=== PATIENT | female | born 1935 | race American Indian/Alaskan Native ===

== ENCOUNTER 2017-05-31 10:16 | Day surgery (SDC) | payer MEDICARE ==
[~2017-05-31 10:16] MED LIST: ACET325 PO; ALBU90OI61 INH; ALEN70 PO; AZIT500 PO; CEFD300 PO; CETI5 PO; FURO20 PO; Jantoven5 MG PO; LEVSOD125 PO; LISI20 PO; LOVA40 PO; METO25 PO; MONT10T PO; MONT4 PO; NITR.4SL SL; PANT40 PO; PRED10 PO; PRED20 PO; Potassium Chlo10 ME1 PO; SPIR25 PO; Ultram50 MG PO; ZESTORETIC 20-121 EA PO
== END 2017-05-31 22:49 | disposition home or self-care (01) ==
LOC: MOI MAM 10:16
PROC: 0HBT3ZX Excision of Right Breast, Percutaneous Approach, Diagnostic (ICD-10-PCS; principal; 2017-05-31)
DX: R92.8 Other abnormal and inconclusive findings on diagnostic imaging of breast (principal)
CPT/HCPCS: 19081; 88305

== ENCOUNTER → 2017-09-06 | Outpatient (CLI) | payer MEDICARE ==
[2017-09-07 14:42] LABS: Stool Occult Bld Immuno 1 Negative (NEGATIVE)
== END | disposition home or self-care (01) ==
LOC: LAB EV 08:30
PROVIDERS: Internal Medicine
DX: Z12.11 Encounter for screening for malignant neoplasm of colon (principal)
CPT/HCPCS: G0328

== ENCOUNTER → 2018-06-13 | Outpatient (CLI) | payer MEDICARE ==
[2018-06-13 15:15] LABS: BASOPHILS ABSOLUTE AUTO 0.02 K/mm3 (0.00-0.23); BASOPHILS PERCENT AUTO 0 % (0-2); EOSINOPHILS ABSOLUTE AUTO 0.09 K/mm3 (0.00-0.68); EOSINOPHILS PERCENT AUTO 1 % (0-6); Hematocrit 32.9 % (33.0-51.0); Hemoglobin 10.3 g/dL (11.5-16.0); IMMATURE GRAN ABSOLUTE AUTO 0.03 K/mm3 (0.00-0.10); IMMATURE GRAN PERCENT AUTO 0 % (0-1); LYMPHOCYTES ABSOLUTE AUTO 1.37 K/mm3 (0.84-5.20); LYMPHOCYTES PERCENT AUTO 14 % (21-46); MONOCYTES ABSOLUTE AUTO 0.85 K/mm3 (0.16-1.47); MONOCYTES PERCENT AUTO 9 % (4-13); Mean Corpuscular HGB 26.3 pg (26.0-34.0); Mean Corpuscular HGB Conc 31.3 g/dL (31.5-36.5); Mean Corpuscular Volume 84 fL (80-100); Mean Platelet Volume 10.5 fL (9.1-12.4); NEUTROPHILS ABSOLUTE AUTO 7.19 K/mm3 (1.96-9.15); NEUTROPHILS PERCENT AUTO 75 % (41-73); Platelet Count 298 K/mm3 (150-400); RDW Coefficient Variation 16.3 % (11.7-14.2); RDW Standard Deviation 49.8 fL (35.1-46.3); Red Blood Cell Count 3.91 M/mm3 (3.80-5.20); White Blood Cell Count 9.55 K/mm3 (4.00-11.30)
[2018-06-13 15:33] LABS: Calcium, Blood 8.9 mg/dL (8.5-10.1); Creatinine, Blood 1.27 mg/dL (0.40-1.00); Potassium, Blood 3.6 mmol/L (3.5-5.5)
== END ==
LOC: LAB EV 15:11 → LAB SHORT 15:11
PROVIDERS: Family Medicine
DX: R42 Dizziness and giddiness (principal)
CPT/HCPCS: 80048; 85025

== ENCOUNTER → 2023-04-06 | Outpatient (CLI) | payer MEDICARE ==
[2023-04-07 12:03] LABS: Stool Occult Bld Immuno 1 Negative (NEGATIVE)
== END | disposition home or self-care (01) ==
LOC: LAB 10:40 → LAB SHORT 10:40
PROVIDERS: Internal Medicine
DX: D53.9 Nutritional anemia, unspecified (principal)
CPT/HCPCS: 82274

== ENCOUNTER 2023-06-05 06:49 | Day surgery (SDC) | payer MEDICARE ==
[~2023-06-05] VITALS: Ht 160 cm; Wt 99.8 kg
[2023-06-05] VITALS (8 sets, daily range): BP systolic 103–150; BP diastolic 54–76
[2023-06-05] MEDS ORDERED: ATOR10 PO (06:57)
[2023-06-05] MEDS ORDERED: Ascorbic Acid500 M2 PO (06:57)
[2023-06-05] MEDS ORDERED: VITAMIN D325 MC3 PO (07:01)
[2023-06-05] MEDS ORDERED: B-12500 MC2 PO (07:02)
[2023-06-05] MEDS ORDERED: FERROUS SULFAT325 M3 PO (07:03)
[2023-06-05] MEDS ORDERED: XARELTO15 MG PO (07:05)
[2023-06-05] MEDS ORDERED: POTCHL20ER PO (07:05)
--- NOTE | 2023-06-05 09:20 | NUR ---
PT BACK TO RECOVERY ROOM. ALERT AND ORIENTED. PT DAUGHTER BACK TO VISIT. PT AND FAIMILY UPDATED ON PROCEDURE. PT GIVEN BREAKFAST AND COFFEE. ICE PACK PLACED OVER PACEMAKER SITE. DRESSING INTACT. NO HEMATOMA NOTED.
--- NOTE | 2023-06-05 11:30 | NUR ---
DR REYES NOTIFIED OF SMALL AMOUNT OF BLOOD ON DRESSING. OKAY TO D/C HOME WITHOUT CHANGING DRESSING. PT AND DAUGHTER VERBALIZE D/C INSTRUCTIONS AND TO FOLLOW UP FOR WOUND CHECK NEXT WEEK 06/16/23. IV D/C CATHETER INTACT. PT DRESSED WITHOUT DIFFICULTY AND WHEELED OUT TO DAUGHTERS VEHICLE.
== END 2023-06-05 11:40 | disposition home or self-care (01) ==
LOC: MHTC 06:49
DX: Z45.010 Encounter for checking and testing of cardiac pacemaker pulse generator [battery] (principal); I48.21 Permanent atrial fibrillation; I49.5 Sick sinus syndrome; E21.3 Hyperparathyroidism, unspecified; E03.9 Hypothyroidism, unspecified; J44.9 Chronic obstructive pulmonary disease, unspecified; I13.0 Hypertensive heart and chronic kidney disease with heart failure and stage 1 through stage 4 chronic kidney disease, or unspecified chronic kidney disease; I50.30 Unspecified diastolic (congestive) heart failure; N18.9 Chronic kidney disease, unspecified; E11.22 Type 2 diabetes mellitus with diabetic chronic kidney disease; M19.90 Unspecified osteoarthritis, unspecified site; Z88.8 Allergy status to other drugs, medicaments and biological substances; Z79.899 Other long term (current) drug therapy
CPT/HCPCS: 33227; 99152; 99153; J0690; J1644; J2250; J3010; J7030; J7040

== ENCOUNTER 2023-06-06 16:05 | Emergency (ER) | payer MEDICARE ==
[~2023-06-06] VITALS: Ht 160 cm; Wt 97.5 kg
[~2023-06-06 16:05] MED LIST changes: +ATOR10 PO; +Ascorbic Acid500 M2 PO; +B-12500 MC2 PO; +FERROUS SULFAT325 M3 PO; +POTCHL20ER PO; +VITAMIN D325 MC3 PO; +XARELTO15 MG PO
[2023-06-06 16:38] LABS: BASOPHILS ABSOLUTE AUTO 0.04 K/mm3 (0.00-0.23); BASOPHILS PERCENT AUTO 0 % (0-2); EOSINOPHILS ABSOLUTE AUTO 0.08 K/mm3 (0.00-0.68); EOSINOPHILS PERCENT AUTO 1 % (0-6); Hematocrit 29.7 % (33.0-51.0); Hemoglobin 8.7 g/dL (11.5-16.0); IMMATURE GRAN ABSOLUTE AUTO 0.05 K/mm3 (0.00-0.10); IMMATURE GRAN PERCENT AUTO 0 % (0-1); LYMPHOCYTES ABSOLUTE AUTO 1.27 K/mm3 (0.84-5.20); LYMPHOCYTES PERCENT AUTO 11 % (21-46); MONOCYTES ABSOLUTE AUTO 1.23 K/mm3 (0.16-1.47); MONOCYTES PERCENT AUTO 11 % (4-13); Mean Corpuscular HGB 24.6 pg (26.0-34.0); Mean Corpuscular HGB Conc 29.3 g/dL (31.5-36.5); Mean Corpuscular Volume 84 fL (80-100); NEUTROPHILS ABSOLUTE AUTO 8.74 K/mm3 (1.96-9.15); NEUTROPHILS PERCENT AUTO 77 % (41-73); Platelet Count 328 K/mm3 (150-400); RDW Coefficient Variation 15.4 % (11.7-14.2); RDW Standard Deviation 45.1 fL (35.1-46.3); Red Blood Cell Count 3.53 M/mm3 (3.80-5.20); White Blood Cell Count 11.41 K/mm3 (4.00-11.30)
[2023-06-06 17:05] LABS: Albumin, Blood 3.3 g/dL (3.4-5.0); Bilirubin, Total 0.5 mg/dL (0.1-1.0); Calcium, Blood 8.6 mg/dL (8.5-10.1); Creatinine, Blood 1.25 mg/dL (0.40-1.00); Globulin, Blood 3.3 g/dL (2.2-4.0); Potassium, Blood 4.1 mmol/L (3.5-5.5); Total Protein, Blood 6.6 g/dL (6.4-8.2)
[2023-06-06 21:00] VITALS: BP 145/64
== END 2023-06-06 21:15 | disposition home or self-care (01) ==
LOC: ER 16:05
PROVIDERS: Physician Assistant
DX: D64.9 Anemia, unspecified (principal); Z95.0 Presence of cardiac pacemaker; Z88.5 Allergy status to narcotic agent; Z88.8 Allergy status to other drugs, medicaments and biological substances; Z79.890 Hormone replacement therapy; Z79.899 Other long term (current) drug therapy; Z79.01 Long term (current) use of anticoagulants
CPT/HCPCS: 80053; 82272; 85025; 99284

== ENCOUNTER → 2023-06-28 | Outpatient (CLI) | payer MEDICARE | END | disposition home or self-care (01) | LOC: PLD 14:34 → LAB SHORT 14:34 | DX: D48.5 Neoplasm of uncertain behavior of skin (principal) | CPT/HCPCS: 88305 ==

== ENCOUNTER 2024-05-28 08:53 | Inpatient (IN) | payer MEDICARE ==
[2024-05-28] VITALS (8 sets, daily range): BP systolic 113–142; BP diastolic 33–79
[~2024-05-28] VITALS: Ht 160 cm; Wt 97.9 kg
[~2024-05-28 08:53] MED LIST changes: +B-121000 MC4 PO; -B-12500 MC2 PO; -CETI5 PO; -FERROUS SULFAT325 M3 PO; +FERSU300 PO; +FURO40 PO; +KLOR-CON 1010 ME9 PO; -POTCHL20ER PO; +ZYRTEC10 M2 PO
[2024-05-28] MEDS ORDERED: HYDROmorphone HCl/Pf 1MG SYR IV ONE ×3 (09:55→14:05)
[2024-05-28] MEDS ORDERED: Ondansetron HCl 2 MG / ML 2ML Vial IV ONE (09:55)
[2024-05-28 13:36] LABS: BASOPHILS ABSOLUTE AUTO 0.02 K/mm3 (0.00-0.23); BASOPHILS PERCENT AUTO 0 % (0-2); EOSINOPHILS ABSOLUTE AUTO 0.01 K/mm3 (0.00-0.68); EOSINOPHILS PERCENT AUTO 0 % (0-6); Hematocrit 31.1 % (33.0-51.0); Hemoglobin 10.1 g/dL (11.5-16.0); IMMATURE GRAN ABSOLUTE AUTO 0.07 K/mm3 (0.00-0.10); IMMATURE GRAN PERCENT AUTO 1 % (0-1); LYMPHOCYTES ABSOLUTE AUTO 0.52 K/mm3 (0.84-5.20); LYMPHOCYTES PERCENT AUTO 5 % (21-46); MONOCYTES ABSOLUTE AUTO 0.42 K/mm3 (0.16-1.47); MONOCYTES PERCENT AUTO 4 % (4-13); Mean Corpuscular HGB 29.4 pg (26.0-34.0); Mean Corpuscular HGB Conc 32.5 g/dL (31.5-36.5); Mean Corpuscular Volume 91 fL (80-100); NEUTROPHILS ABSOLUTE AUTO 10.54 K/mm3 (1.96-9.15); NEUTROPHILS PERCENT AUTO 91 % (41-73); Platelet Count 205 K/mm3 (150-400); RDW Coefficient Variation 13.3 % (11.7-14.2); RDW Standard Deviation 43.9 fL (35.1-46.3); Red Blood Cell Count 3.43 M/mm3 (3.80-5.20); White Blood Cell Count 11.58 K/mm3 (4.00-11.30)
[2024-05-28 13:49] LABS: International Normalized Ratio 1.15; Prothrombin Time Results 12.2 Sec (9.7-11.5)
[2024-05-28 14:08] LABS: Albumin, Blood 3.4 g/dL (3.4-5.0); Albumin/Globulin Ratio 1.2 (0.8-1.8); Bilirubin, Total 0.6 mg/dL (0.1-1.0); Bun/Creatinine Ratio 27.7 (12.0-20.0); Calcium, Blood 8.3 mg/dL (8.5-10.1); Creatinine, Blood 0.87 mg/dL (0.40-1.00); Globulin, Blood 2.9 g/dL (2.2-4.0); Potassium, Blood 4.4 mmol/L (3.5-5.5); Total Protein, Blood 6.3 g/dL (6.4-8.2)
[2024-05-28] MEDS ORDERED: EUTHYROX150 MC1 PO (14:12)
[2024-05-28] MEDS ORDERED: MONT10T PO (14:13)
[2024-05-28] MEDS ORDERED: HYDROmorphone HCl/Pf 1MG SYR IV PRN (14:20)
[2024-05-28] MEDS ORDERED: FLU VACC TS2024-25(6MOS UP)/PF 45 MCG/0.5 ML SYRINGE IM SCH (14:20)
[2024-05-28] MEDS ORDERED: Ondansetron HCl 2 MG / ML 2ML Vial IV PRN (14:55)
[2024-05-28] MEDS ORDERED: Acetaminophen 500 MG Tab PO PRN (15:00)
[2024-05-28] MEDS ORDERED: Acetaminophen 500 MG Tab PO ONE (15:00)
[2024-05-28] MEDS ORDERED: propofoL 20 ML IV ONE (15:34)
[2024-05-28] MEDS ORDERED: Rocuronium Bromide 10 MG/ML 5ML Injection IV ONE (15:38)
[2024-05-28] MEDS ORDERED: Lactated Ringer's 1,000 ML IV SCH (15:50)
[2024-05-28] MEDS ORDERED: CeFAZolin Sodium 2,000 MG in NS 100 ML IV SCH (15:50)
[2024-05-28] MEDS ORDERED: ePHEDrine Sulfate 50 MG/ML 1ML Injection ONE (16:00)
[2024-05-28] MEDS ORDERED: FentaNYL Citrate 50 MCG/ML 2 ML Injection ONE (16:00)
--- NOTE | 2024-05-28 16:10 | NUR ---
Pre-Op teaching done. Pt verbalizes understanding. Patient confirms NPO status and agrees with scheduled surgery. Various rings & watch removed by patient & daughter, sent home with daughter, Jyoa.
[2024-05-28] MEDS ORDERED: Tranexamic Acid 100 ML IV SCH (16:15)
[2024-05-28] MEDS ORDERED: Ondansetron HCl 2 MG / ML 2ML Vial ONE (16:23)
[2024-05-28] MEDS ORDERED: Dexamethasone Sod Phos 10 MG/ML 1ML VIAL ONE (16:23)
[2024-05-28] MEDS ORDERED: Tranexamic Acid 100 ML IV ONE (16:29)
[2024-05-28] MEDS ORDERED: Sugammadex Sodium 200 MG/2ML SDV (100 MG/ML) ONE (16:48)
[2024-05-28] MEDS ORDERED: Albuterol HFA200 ACT/6.7 GM INH INH PRN ×2 (17:00→18:25)
[2024-05-28] MEDS ORDERED: Albuterol 2.5 MG/3 ML VIAL ONE (17:35)
--- NOTE | 2024-05-28 18:54 | NUR ---
ASSUMPTION OF CARE/SHIFT SUMMARY CALLED AND RECEIVED REPORT FROM BANER CERTIFIED HISTOLOGIC TECHNICIAN. PT ARRIVED TO PCU VIA RPINEOLA. PT SLID FROM RPINEOLA TO PCU BED. PT ARRIVED TO PCU WITH FACEMASK RECEIVING BREATHING TREATMENT. PT REPORTS SOB, O2 IN THE 90'S. PT REPORTED SHE WAS "UNABLE TO TAKE A DEEP BREATH." PROVIDER CALED AND NOTIFIED, EKG COMPLETED, CXR ORDERED. HR IN THE 60'S-70'S, PACED RHYTHM, DENIES CP/PRESSURE, NUMB/TINGLING. PT WITH A LEFT HEMOVAC IN PLACE, POST LEFT KNEE I&D THIS AFTERNOON. GUAZE AND CLAYTON WRAP IN PLACE. PT REPORTS PAIN 5/10. FAMILY AT BEDSIDE. PT DENIES ANY QUESTIONS OR CONCERNS AT THIS TIME. WILL MONITOR PT AND REPORT TO SUPERVISOR PRODUCTION MANAGING RN.
[2024-05-28] MEDS ORDERED: Montelukast Sodium 10 MG Tab PO SCH (21:00)
[2024-05-29] VITALS (7 sets, daily range): BP systolic 109–137; BP diastolic 47–76
[2024-05-29] MEDS ORDERED: CeFAZolin Sodium 2,000 MG in NS 100 ML IV SCH
[2024-05-29 05:10] LABS: BASOPHILS PERCENT AUTO 0 % (0-2); EOSINOPHILS PERCENT AUTO 0 % (0-6); Hemoglobin 8.8 g/dL (11.5-16.0); IMMATURE GRAN ABSOLUTE AUTO 0.04 K/mm3 (0.00-0.10); IMMATURE GRAN PERCENT AUTO 0 % (0-1); LYMPHOCYTES PERCENT AUTO 5 % (21-46); MONOCYTES ABSOLUTE AUTO 0.22 K/mm3 (0.16-1.47); MONOCYTES PERCENT AUTO 2 % (4-13); Mean Corpuscular HGB 29.2 pg (26.0-34.0); Mean Corpuscular HGB Conc 32.6 g/dL (31.5-36.5); Mean Corpuscular Volume 90 fL (80-100); NEUTROPHILS ABSOLUTE AUTO 9.28 K/mm3 (1.96-9.15); NEUTROPHILS PERCENT AUTO 92 % (41-73); Platelet Count 211 K/mm3 (150-400); RDW Coefficient Variation 13.3 % (11.7-14.2); RDW Standard Deviation 43.7 fL (35.1-46.3); Red Blood Cell Count 3.01 M/mm3 (3.80-5.20); White Blood Cell Count 10.04 K/mm3 (4.00-11.30)
[2024-05-29 05:22] LABS: International Normalized Ratio 1.02; Prothrombin Time Results 10.9 Sec (9.7-11.5)
[2024-05-29 05:42] LABS: Albumin, Blood 3.1 g/dL (3.4-5.0); Albumin/Globulin Ratio 1.1 (0.8-1.8); Bilirubin, Total 0.3 mg/dL (0.1-1.0); Bun/Creatinine Ratio 29.9 (12.0-20.0); Calcium, Blood 7.9 mg/dL (8.5-10.1); Creatinine, Blood 0.9 mg/dL (0.40-1.00); Globulin, Blood 2.8 g/dL (2.2-4.0); Magnesium, Blood 2.1 mg/dL (1.6-2.4); Phosphorus, Blood 3.6 mg/dL (2.5-4.9); Potassium, Blood 4.6 mmol/L (3.5-5.5); Total Protein, Blood 5.9 g/dL (6.4-8.2)
[2024-05-29] MEDS ORDERED: Levothyroxine Sodium 0.15 MG Tab PO SCH (06:00)
--- NOTE | 2024-05-29 06:28 | NUR ---
SHIFT SUMMARY: PT IS A&OX4, PLEASANT AND COOPERATIVE WITH CARE. VSS ON RA. V-PACED 60'S-70'S. HAS SOME DISCOMFORT IN HER LLE, MANAGED WITH TYLENOL. DRESSING TO LLE, C/D/I. HEMOVAC WITH MINIMAL OUTPUT. X1 ASSIST TO BSC. VOIDING ADEQUATE AMOUNTS OF CONCENTRATED URINE. NO BM THIS SHIFT. USES A CANE AT BASELINE. TOLERATING A CONS CARB DIET, NO APPETITE. BED IN LOWEST POSITION, CALL LIGHT WITHIN REACH. CALLS APPROPRIATELY AND IS ABLE TO ADVOCATE NEEDS EFFECTIVELY. BED ALARM SET FOR PT'S SAFETY.
[2024-05-29] MEDS ORDERED: Potassium Chloride 20 MEQ TabCR PO SCH (09:00)
[2024-05-29] MEDS ORDERED: Atorvastatin 10 MG Tab PO SCH (09:00)
[2024-05-29] MEDS ORDERED: Ferrous Sulfate 325 MG Tab PO SCH (09:00)
[2024-05-29] MEDS ORDERED: Ascorbic Acid 500 MG Tab PO SCH (09:00)
[2024-05-29] MEDS ORDERED: Loratadine 10 MG Tab PO SCH (09:00)
[2024-05-29] MEDS ORDERED: Cholecalciferol 1000 Unit Tablet (=25MCG) PO SCH (09:00)
[2024-05-29] MEDS ORDERED: Furosemide 40 MG Tab PO SCH (09:00)
[2024-05-29] MEDS ORDERED: Cyanocobalamin 500 MCG Tab PO SCH (09:00)
[2024-05-29] MEDS ORDERED: Lisinopril 20 MG Tab PO SCH (09:00)
--- NOTE | 2024-05-29 10:21 | NUR ---
ASSUMPTION OF CARE PT A&O X4, CALM, COOPERATIVE TO CARE, HR IN THE 60'S-70'S, PACED RHTHYM, SHE DENIES ANY CP/PRESSURE, NUMB/TINGLING, SBP STABLE. O2 >92% ON RA, DENIES SOB. PT 1 DAY POST I&D OF LEFT KNEE. DRESSED WITH GAUZE AND CLAYTON WRAP, C/D/I. PT REPORTS SOME PAIN WITH AMBULATION. SHE DENIES ANY CONCERNS AT THIS TIME. WILL MONITOR PT.
--- NOTE | 2024-05-29 14:44 | NUR ---
Great visit with this patient today. She shares about her family, her mcfp from the [employer] business and about her interest in ancestry. Patient is very sarp and quick witted. There was much laughter and also a sharing of concerns that she has for good health for her mcfp yrs. I provided therapeutic listening, levity, and prayer. Patient responded well and showed signs of an elevated mood. I will continue to remain available to patient and family.
--- NOTE | 2024-05-29 18:11 | NUR ---
SHIFT SUMMARY PT A&O X4, CALM, COOPERATIVE TO CARE. PACED RHYTHM IN THE 60'S. DENIES CP/PRESSURE, NUMB/TINGLING, SBP STABLE. O2 >92% ON RA, DENIES SOB. PT WORKED WITH PHYSICAL THERAPY TODAY, PT TO AMBULATE WITH SBA AND WALKER. LEFT KNEE I&D DRESSED WITH GUAZE/CLAYTON WRAP, C/D/I, PT DENYING PAIN. SHE WAS CHANGED TO SURGICAL STATUS. NO ACUTE CHANGES T/O SHIFT. SHE DENIES ANY QUESTIONS OR CONCERNS AT SI TIME, WILL MONITOR PT AND REPORT TO PREBOARDER RN.
--- NOTE | 2024-05-30 00:55 | NUR ---
SHIFT SUMMARY NEURO:WNL LUNGS:WNL CARDIAC: WNL- VPACED LLE SURGICAL PRESSURE BANDAGE WITH HEMOVAC REMAINS IN PLACE. +1 PEDAL PULSE. WILFREOD TIBIAL. NO BRUISING NOTED ON FOOT. BLOOD IS DARK AND CLOTTED IN HEMOVAC TUBING WITH SCANT OUTPUT IN RESERVOIR. PT REPORTS NO PAIN, NO LOSS OF SENSATION OR TINGLING.
[2024-05-30 05:09] VITALS: BP 152/71
[2024-05-30 07:18] VITALS: BP 117/56
[2024-05-30] MEDS ORDERED: Zinc Sulfate 220 MG Cap (Provides 50MG) PO SCH (09:00)
[2024-05-30 12:35] VITALS: BP 145/60
[2024-05-30] MEDS ORDERED: ZINC220 PO (12:41)
--- NOTE | 2024-05-30 15:16 | NUR ---
DISCHARGE SUMMARY PT A&O X4, CALM, COOPERATIVE TO CARE. PACED RHYTHM IN THE 60'S, DENIES CP/PRESSURE, NUMB/TINGLING, SBP STABLE. O2 >92% ON RA, DENIED SOB. PT WITH PAIN IN THE LEFT KNEE, MEDICATED PER EMAR. SURGEON TO BEDSIDE. DRESSING REMOVED, DRAIN REMOVED. NEW DRESSING WITH XEROFOAM, ABD PADS, AND CLAYTON WRAP APPLIED. PT CLEARED FROM SURGEON STANDPOINT. PT CLEARED FOR D/C, ORDERS RECEIVED. REVIEWED D/C INSTRUCTIONS WITH PT. PT NOTED UNDERSTANDING, DENIES ANY QUESTIONS OR CONCERNS. PT LEFT VIA WHEELCHAIR WITH PCT.
== END 2024-05-30 13:06 | disposition home health service (06) | DRG 923 ==
LOC: ER 08:53 → PCU 14:14
PROVIDERS: Student in an Organized Health Care Education/Training Program; ADMIT Family Medicine
PROC: 0H9LXZZ Drainage of Left Lower Leg Skin, External Approach (ICD-10-PCS; principal; 2024-05-29)
DX: T79.A22A Traumatic compartment syndrome of left lower extremity, initial encounter (principal); S80.12XA Contusion of left lower leg, initial encounter; I48.91 Unspecified atrial fibrillation; I10 Essential (primary) hypertension; E11.9 Type 2 diabetes mellitus without complications; E03.9 Hypothyroidism, unspecified; J45.909 Unspecified asthma, uncomplicated; E78.5 Hyperlipidemia, unspecified; M81.0 Age-related osteoporosis without current pathological fracture; S51.011A Laceration without foreign body of right elbow, initial encounter; W19.XXXA Unspecified fall, initial encounter; Z88.8 Allergy status to other drugs, medicaments and biological substances; Z88.5 Allergy status to narcotic agent; Z79.890 Hormone replacement therapy; Z79.899 Other long term (current) drug therapy; Z95.0 Presence of cardiac pacemaker; Z79.51 Long term (current) use of inhaled steroids; Z79.01 Long term (current) use of anticoagulants; Z90.89 Acquired absence of other organs; Z98.49 Cataract extraction status, unspecified eye; Z90.710 Acquired absence of both cervix and uterus; Z87.81 Personal history of (healed) traumatic fracture; Y92.009 Unspecified place in unspecified non-institutional (private) residence as the place of occurrence of the external cause
CPT/HCPCS: 36415; 71045; 73560-LT; 73590; 73706; 80053; 82947; 83735; 84100; 84484; 85025; 85610; 85730; 94760; 94762; 96374-59; 96375-59; 96376-59; 97110; 97116; 97162; 99285-25; A9270; J0690; J1100; J1171; J2405; J2704; J3010; J7120; Q9967

== ENCOUNTER 2024-06-28 03:58 | Day surgery (SDC) | payer MEDICARE ==
[~2024-06-28 03:58] MED LIST changes: +EUTHYROX150 MC1 PO; +ZINC220 PO
== END 2024-06-28 23:00 | disposition home or self-care (01) ==
LOC: WOUND 03:58
DX: S80.12XD Contusion of left lower leg, subsequent encounter (principal); X58.XXXD Exposure to other specified factors, subsequent encounter; L03.115 Cellulitis of right lower limb; Z88.5 Allergy status to narcotic agent; Z88.8 Allergy status to other drugs, medicaments and biological substances
CPT/HCPCS: G0463

== ENCOUNTER 2024-07-05 02:19 | Day surgery (SDC) | payer MEDICARE ==
[2024-07-05] MEDS ORDERED: Lidocaine HCl 4% Cream 5 GM ONE (14:53)
== END 2024-07-05 23:00 | disposition home or self-care (01) ==
LOC: WOUND 02:19
DX: L97.222 Non-pressure chronic ulcer of left calf with fat layer exposed (principal); L03.116 Cellulitis of left lower limb; S80.12XA Contusion of left lower leg, initial encounter; X58.XXXA Exposure to other specified factors, initial encounter; Z98.890 Other specified postprocedural states
CPT/HCPCS: A9270

== ENCOUNTER 2024-07-12 05:08 | Day surgery (SDC) | payer MEDICARE ==
[2024-07-12] MEDS ORDERED: Lidocaine HCl 4% Cream 5 GM ONE (13:22)
== END 2024-07-12 23:00 | disposition home or self-care (01) ==
LOC: WOUND 05:08
DX: S81.802A Unspecified open wound, left lower leg, initial encounter (principal); L03.116 Cellulitis of left lower limb; X58.XXXA Exposure to other specified factors, initial encounter
CPT/HCPCS: A9270

== ENCOUNTER 2024-07-19 04:25 | Day surgery (SDC) | payer MEDICARE ==
[2024-07-19] MEDS ORDERED: Lidocaine HCl 4% Cream 5 GM ONE (13:21)
== END 2024-07-19 23:00 | disposition home or self-care (01) ==
LOC: WOUND 04:25
DX: L97.221 Non-pressure chronic ulcer of left calf limited to breakdown of skin (principal); L03.116 Cellulitis of left lower limb; S80.12XD Contusion of left lower leg, subsequent encounter; Z98.890 Other specified postprocedural states; X58.XXXD Exposure to other specified factors, subsequent encounter
CPT/HCPCS: A9270; G0463

== ENCOUNTER 2024-07-26 03:28 | Day surgery (SDC) | payer MEDICARE ==
[2024-07-26] MEDS ORDERED: Lidocaine HCl 4% Cream 5 GM ONE (13:05)
[2024-07-26] MEDS ORDERED: Silver Nitr/Potassium Nitrate 1 EA APPL ONE (13:18)
== END 2024-07-26 23:00 | disposition home or self-care (01) ==
LOC: WOUND 03:28
DX: L97.822 Non-pressure chronic ulcer of other part of left lower leg with fat layer exposed (principal); L03.116 Cellulitis of left lower limb; S80.12XA Contusion of left lower leg, initial encounter; Z98.890 Other specified postprocedural states
CPT/HCPCS: A9270

== ENCOUNTER 2024-08-02 04:15 | Day surgery (SDC) | payer MEDICARE ==
[2024-08-02] MEDS ORDERED: Lidocaine HCl 4% Cream 5 GM ONE (14:35)
[2024-08-02] MEDS ORDERED: Silver Nitr/Potassium Nitrate 1 EA APPL ONE (15:22)
== END 2024-08-02 23:00 | disposition home or self-care (01) ==
LOC: WOUND 04:15
DX: L97.822 Non-pressure chronic ulcer of other part of left lower leg with fat layer exposed (principal); L03.116 Cellulitis of left lower limb; S80.12XA Contusion of left lower leg, initial encounter; Z98.890 Other specified postprocedural states
CPT/HCPCS: A9270

== ENCOUNTER 2024-08-09 00:37 | Day surgery (SDC) | payer MEDICARE | END 2024-08-09 23:00 | disposition home or self-care (01) | LOC: WOUND 00:37 | DX: L97.221 Non-pressure chronic ulcer of left calf limited to breakdown of skin (principal); L03.116 Cellulitis of left lower limb; S80.12XD Contusion of left lower leg, subsequent encounter; Z98.890 Other specified postprocedural states; X58.XXXD Exposure to other specified factors, subsequent encounter | CPT/HCPCS: G0463 ==

== ENCOUNTER 2024-08-16 03:46 | Day surgery (SDC) | payer MEDICARE | END 2024-08-16 23:00 | disposition home or self-care (01) | LOC: WOUND 03:46 | DX: L97.829 Non-pressure chronic ulcer of other part of left lower leg with unspecified severity (principal); Z87.828 Personal history of other (healed) physical injury and trauma | CPT/HCPCS: G0463 ==

== ENCOUNTER 2024-08-23 02:45 | Day surgery (SDC) | payer MEDICARE | END 2024-08-23 23:00 | disposition home or self-care (01) | LOC: WOUND 02:45 | DX: Z09 Encounter for follow-up examination after completed treatment for conditions other than malignant neoplasm (principal); Z87.828 Personal history of other (healed) physical injury and trauma | CPT/HCPCS: G0463 ==